=== PATIENT | female | born 1955 | race African-American/Black ===

== ENCOUNTER 2023-06-15 05:39 | Inpatient (IN) | payer OTHER, MEDICAID ==
[~2023-06-15] VITALS: Ht 167.6 cm; Wt 64.6 kg
[2023-06-15 07:26] LABS: Basophils # (auto) 0 10 ^3/uL (0-0.2); Basophils % (auto) 0.6 % (0.0-2.0); Eosinophils # (auto) 0.1 10 ^3/uL (0-0.8); Eosinophils % (auto) 2.2 % (0.0-7.0); Hematocrit 44.1 % (36.0-46.0); Hemoglobin 14.8 g/dL (12.2-16.2); Lymphocytes # (auto) 1.2 10 ^3/uL (0.4-5.4); Lymphocytes % (auto) 19.4 % (10.0-50.0); Mean Corpuscular Hgb Conc. 33.5 g/dL (32.0-36.0); Mean Corpuscular Volume 92.4 fL (80.0-100.0); Monocytes # (auto) 0.3 10 ^3/uL (0-1.3); Monocytes % (auto) 4.8 % (0.0-12.0); Neutrophils # (auto) 4.5 10 ^3/uL (1.6-8.6); Red Blood Cells 4.77 10^6/uL (4.0-5.20); Red Cell Distribution Width 13.6 % (11.8-14.3); White Blood Cell 6.1 10^3/uL (4.4-10.8)
[2023-06-15 07:46] LABS: Alanine Aminotransferase 41 U/L (7-40); Albumin 4.3 g/dL (3.2-4.8); Alkaline Phosphatase 104 U/L (46-116); Anion Gap 9 (5-15); Aspartate Aminotransferase 32 U/L (13-40); BUN/Creatinine Ratio 9.6 (10.0-20.0); Blood Urea Nitrogen 5 mg/dL (9-23); Calcium 9.4 mg/dL (8.5-10.1); Carbon Dioxide 25 mmol/L (20-30); Chloride 105 mmol/L (98-107); Glucose 97 mg/dL (74-106); Potassium 3.4 mmol/L (3.5-5.1); Sodium 139 mmol/L (136-145)
[2023-06-15 07:47] LABS: Bilirubin, Total 0.9 mg/dL (0.2-1.0); Total Protein 7.6 g/dL (5.7-8.2)
[2023-06-15 08:40] LABS: Urine Bacteria NONE SEEN /hpf (None Seen); Urine Blood Negative /uL (Negative); Urine Clarity HAZY (Clear); Urine Mucus FEW (None Seen); Urine Protein, UAD Negative (Negative); Urine Specific Gravity 1.016 (1.001-1.035); Urine Urobilinogen Normal (Negative); Urine WBC 8 /hpf (0 - 5)
[2023-06-15 08:41] LABS: Urine Color Straw (Yellow)
[2023-06-15] MEDS ORDERED: PROCHLORPERAZINE EDISYLATE 5 MG/ML 2ML VIAL IM ONE (12:15)
[2023-06-15] MEDS ORDERED: traMADol HCL 50 MG TAB PO ONE (12:45)
[2023-06-15] MEDS ORDERED: cefTRIAXone 1GM/50ML D5W 50 ML IV ONE (15:00)
[2023-06-15] MEDS ORDERED: MECLIZINE HCL 25 MG TAB PO ONE (15:00)
[2023-06-15] MEDS ORDERED: ACETAMINOPHEN 325 MG TAB PO PRN (15:15)
[2023-06-15] MEDS ORDERED: ONDANSETRON HCL 4 MG/2 ML VIAL IV PRN (15:15)
[2023-06-15] MEDS ORDERED: MORPHINE SULFATE INJ 2 MG/ml SYRG IV PRN ×2 (15:15)
[2023-06-15] MEDS ORDERED: HYDROcodone-ACET 5/325MG TAB PO PRN (15:15)
[2023-06-15] MEDS ORDERED: NITROGLYCERIN 0.4 MG SL TAB SL PRN (15:15)
[2023-06-15] MEDS ORDERED: LORazepam 2MG/ML-1ML VIAL IM PRN (15:30)
[2023-06-15] MEDS ORDERED: hydrALAZINE HCL 20 MG/ML VL IV PRN (15:30)
[2023-06-15] MEDS ORDERED: POTASSIUM CHL 20 Meq TABLET PO ONE (15:30)
[2023-06-15 16:40] LABS: Alanine Aminotransferase 42 U/L (7-40); Albumin 4.4 g/dL (3.2-4.8); Alkaline Phosphatase 100 U/L (46-116); Anion Gap 8 (5-15); Aspartate Aminotransferase 26 U/L (13-40); BUN/Creatinine Ratio 15.5 (10.0-20.0); Bilirubin, Total 0.9 mg/dL (0.2-1.0); Blood Urea Nitrogen 9 mg/dL (9-23); Calcium 9.7 mg/dL (8.5-10.1); Carbon Dioxide 27 mmol/L (20-30); Chloride 106 mmol/L (98-107); Cholesterol 212 mg/dL (< 200); Glucose 88 mg/dL (74-106); HDL Cholesterol 90 mg/dL (40-59); LDL Cholesterol 111 mg/dL (< 100); Potassium 3.9 mmol/L (3.5-5.1); Sodium 141 mmol/L (136-145); Total Protein 7.3 g/dL (5.7-8.2); Triglycerides 96 mg/dL (< 150)
[2023-06-15 18:10] LABS: Hepatitis B Surface Antigen Negative (Negative)
[2023-06-15 18:30] VITALS: PULSE 62; RESP 15; O2SAT 97
[2023-06-15] MEDS: LOSARTAN POTASSIUM 50 MG TAB PO SCH ×2 (18:55→19:19)
[2023-06-15] MEDS: MULTIPLE VITAMIN TAB PO SCH (18:55)
[2023-06-15] MEDS: THIAMINE HCL 100 MG TAB PO SCH (18:55)
[2023-06-15] MEDS: FOLIC ACID 1 MG TAB PO SCH (18:56)
[2023-06-15 21:52] VITALS: PULSE 61; RESP 16; O2SAT 95
[2023-06-15 22:00] VITALS: BP 149/80; PULSE 61; RESP 16; TEMP 98.6; O2SAT 95
[2023-06-15] MEDS: MECLIZINE HCL 25 MG TAB PO SCH (22:06)
[2023-06-15] MEDS ORDERED: AMLO2.5C9 (22:10)
[2023-06-15 23:15] LABS: Amphetamine Screen, Urine Neg (NEGATIVE)
[2023-06-15 23:16] LABS: Barbiturate Scree,Urine Neg (NEGATIVE); Benzodiazephine Screen, Urine Neg (NEGATIVE); Cannabinoid Screen, Urine Neg (NEGATIVE); Cocaine Screen, Urine Neg (NEGATIVE); Opiate Scree,Urine Neg (NEGATIVE); Phencyclidine Screen, Urine Neg (NEGATIVE)
[2023-06-16] VITALS (7 sets, daily range): BP systolic 128–150; BP diastolic 72–79; PULSE 59–86; RESP 16–20; TEMP 97.4–98.9; O2SAT 95–100
[2023-06-16 05:13] LABS: Basophils # (auto) 0 10 ^3/uL (0-0.2); Basophils % (auto) 0.7 % (0.0-2.0); Eosinophils # (auto) 0.1 10 ^3/uL (0-0.8); Eosinophils % (auto) 2.2 % (0.0-7.0); Hematocrit 42.9 % (36.0-46.0); Hemoglobin 13.8 g/dL (12.2-16.2); Lymphocytes % (auto) 38.1 % (10.0-50.0); Mean Corpuscular Hemoglobin 31.1 pg (28.0-32.0); Mean Corpuscular Hgb Conc. 32.2 g/dL (32.0-36.0); Mean Corpuscular Volume 96.5 fL (80.0-100.0); Monocytes # (auto) 0.3 10 ^3/uL (0-1.3); Monocytes % (auto) 6.4 % (0.0-12.0); Neutrophils # (auto) 2.8 10 ^3/uL (1.6-8.6); Neutrophils % (auto) 52.6 % (37.0-80.0); Nucleated Red Blood Cells % 0.1 %; Red Blood Cells 4.44 10^6/uL (4.0-5.20); Red Cell Distribution Width 14.5 % (11.8-14.3); White Blood Cell 5.3 10^3/uL (4.4-10.8)
[2023-06-16 05:28] LABS: Alanine Aminotransferase 33 U/L (7-40); Albumin 3.7 g/dL (3.2-4.8); Alkaline Phosphatase 85 U/L (46-116); Anion Gap 5 (5-15); Aspartate Aminotransferase 28 U/L (13-40); Bilirubin, Total 0.9 mg/dL (0.2-1.0); Carbon Dioxide 26 mmol/L (20-30); Chloride 109 mmol/L (98-107); Glucose 87 mg/dL (74-106); Potassium 4.1 mmol/L (3.5-5.1); Sodium 140 mmol/L (136-145); Total Protein 6.7 g/dL (5.7-8.2)
[2023-06-16 05:40] LABS: BUN/Creatinine Ratio 8.6 (10.0-20.0); Blood Urea Nitrogen < 5 mg/dL (9-23)
[2023-06-16] MEDS ORDERED: ERGOCALCIFEROL 50,000 UNIT(1.25MG) CAP PO SCH (08:00)
[2023-06-16] MEDS ORDERED: ASPI-325 PO (09:25)
[2023-06-16] MEDS ORDERED: THIA100T10 PO (09:25)
[2023-06-16] MEDS ORDERED: MULTTAB99 PO (09:25)
[2023-06-16] MEDS ORDERED: ERGO1CAP23 PO (09:25)
[2023-06-16] MEDS ORDERED: MECL1TAB32 PO (09:25)
[2023-06-16] MEDS ORDERED: LOSA50TA46 PO (09:25)
[2023-06-16] MEDS ORDERED: CEPH500C PO (09:26)
[2023-06-16] MEDS: ASPirin 81 mg TAB PO SCH (10:48)
[2023-06-16] MEDS: cefTRIAXone 1GM/50ML D5W 50 ML IV SCH (10:48)
[2023-06-16] MEDS: MULTIPLE VITAMIN TAB PO SCH (10:48)
[2023-06-16] MEDS: THIAMINE HCL 100 MG TAB PO SCH (10:49)
[2023-06-16] MEDS: LOSARTAN POTASSIUM 50 MG TAB PO SCH (10:50)
[2023-06-16] MEDS: MECLIZINE HCL 25 MG TAB PO SCH ×2 (10:50→21:30)
[2023-06-16] MEDS: FOLIC ACID 1 MG TAB PO SCH (10:50)
[2023-06-17 05:00] VITALS: BP 154/90; PULSE 62; RESP 18; TEMP 98.1; O2SAT 95
[2023-06-17 06:26] LABS: Basophils # (auto) 0 10 ^3/uL (0-0.2); Eosinophils # (auto) 0.1 10 ^3/uL (0-0.8); Eosinophils % (auto) 2.8 % (0.0-7.0); Hematocrit 41.7 % (36.0-46.0); Hemoglobin 13.5 g/dL (12.2-16.2); Lymphocytes # (auto) 1.9 10 ^3/uL (0.4-5.4); Lymphocytes % (auto) 41.3 % (10.0-50.0); Mean Corpuscular Hemoglobin 30.7 pg (28.0-32.0); Mean Corpuscular Hgb Conc. 32.4 g/dL (32.0-36.0); Mean Corpuscular Volume 94.7 fL (80.0-100.0); Monocytes # (auto) 0.3 10 ^3/uL (0-1.3); Monocytes % (auto) 7.1 % (0.0-12.0); Neutrophils # (auto) 2.2 10 ^3/uL (1.6-8.6); Neutrophils % (auto) 47.8 % (37.0-80.0); Nucleated Red Blood Cells % 0.1 %; Red Cell Distribution Width 13.4 % (11.8-14.3); White Blood Cell 4.7 10^3/uL (4.4-10.8)
[2023-06-17 06:36] LABS: Chloride 107 mmol/L (98-107); Potassium 3.8 mmol/L (3.5-5.1); Sodium 140 mmol/L (136-145)
[2023-06-17 06:37] LABS: Anion Gap 7 (5-15); Calcium 8.8 mg/dL (8.5-10.1); Carbon Dioxide 26 mmol/L (20-30)
[2023-06-17 06:42] LABS: BUN/Creatinine Ratio 11.1 (10.0-20.0); Blood Urea Nitrogen 7 mg/dL (9-23); Glucose 96 mg/dL (74-106)
[2023-06-17] MEDS ORDERED: HYDR25TA5 PO ×2 (07:40)
[2023-06-17] MEDS ORDERED: ATOR40TA52 PO (07:42)
[2023-06-17 08:00] VITALS: RESP 18
[2023-06-17] MEDS ORDERED: AMLO1TAB23 PO (08:37)
[2023-06-17 08:50] VITALS: BP 136/70; PULSE 66; RESP 18; TEMP 97.8; O2SAT 94
[2023-06-17] MEDS: cefTRIAXone 1GM/50ML D5W 50 ML IV SCH (09:00)
[2023-06-17] MEDS: FOLIC ACID 1 MG TAB PO SCH (09:32)
[2023-06-17] MEDS: ASPirin 81 mg TAB PO SCH (09:32)
[2023-06-17] MEDS: LOSARTAN POTASSIUM 50 MG TAB PO SCH (09:32)
[2023-06-17] MEDS: MECLIZINE HCL 25 MG TAB PO SCH (09:32)
[2023-06-17] MEDS: THIAMINE HCL 100 MG TAB PO SCH (09:32)
[2023-06-17] MEDS ORDERED: hydroCHLOROthiazide 25 MG TAB PO SCH (10:00)
[2023-06-17] MEDS: MULTIPLE VITAMIN TAB PO SCH (10:00)
[2023-06-18 10:26] LABS: Hepatitis A Ab IgM Negative; Hepatitis B Core IgM Negative
[2023-06-18 10:27] LABS: Hepatitis C Antibody Negative (Negative)
== END 2023-06-17 12:00 | disposition home or self-care (01) | DRG 641 ==
LOC: ER 05:39 → OVERFLOW 15:15 → WEST WING 21:49
PROVIDERS: ADMIT Internal Medicine; ATTEND Internal Medicine
DX: E86.0 Dehydration (principal); N39.0 Urinary tract infection, site not specified; I16.1 Hypertensive emergency; E87.6 Hypokalemia; F10.10 Alcohol abuse, uncomplicated; I10 Essential (primary) hypertension; H81.10 Benign paroxysmal vertigo, unspecified ear; R74.01 Elevation of levels of liver transaminase levels
CPT/HCPCS: 36415; 70450; 71045; 76705; 80048; 80053; 80061; 80074; 80307; 80320; 81001; 82306; 82607; 83605; 84443; 84484; 85025; 87086; 93005; 93306; 93886; 96365; 96372; 97110; 97163; G0378; J0696

== ENCOUNTER 2025-06-04 12:53 | Emergency (ER) | payer OTHER, MEDICAID ==
[~2025-06-04] VITALS: Ht 167.6 cm; Wt 65.9 kg
[~2025-06-04 12:53] MED LIST: AMLO1TAB23 PO; AMLO2.5C9; ASPI-325 PO; ATOR40TA52 PO; CEPH500C PO; ERGO1CAP23 PO; LOSA-534 PO; MECL-90 PO; MULTTAB99 PO; THIA100T10 PO
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
--- NOTE | 2025-06-04 15:18 | DVH ---
CLINICAL INDICATION: twist TECHNIQUE: 2 radiographic views of the right ankle were obtained. Comparison: None FINDINGS/IMPRESSION: Bony alignment is normal No fractures or dislocations. No radiopaque foreign bodies.
--- NOTE | 2025-06-04 15:40 | DVH ---
CLINICAL INDICATION: degen TECHNIQUE: 5 radiographic views of the lumbar spine were obtained. Comparison: None FINDINGS/IMPRESSION: Mild compression of L1 and L2 age indeterminate correlate for tenderness in that area. No spondylolisthesis.
[2025-06-04] MEDS ORDERED: IBU600T PO (17:11)
[2025-06-04 17:25] VITALS: BP 153/98; PULSE 74; RESP 16; TEMP 98.1; O2SAT 99
== END 2025-06-04 17:40 | disposition home or self-care (01) ==
LOC: ER 12:53
DX: S32.010A Wedge compression fracture of first lumbar vertebra, initial encounter for closed fracture (principal); M16.11 Unilateral primary osteoarthritis, right hip; G89.4 Chronic pain syndrome; Z79.899 Other long term (current) drug therapy; X50.1XXA Overexertion from prolonged static or awkward postures, initial encounter; Y93.89 Activity, other specified; Y92.89 Other specified places as the place of occurrence of the external cause; Y99.8 Other external cause status
CPT/HCPCS: 72110; 73600